=== PATIENT | female | born 1950 | race Caucasian/White ===

== ENCOUNTER 2017-06-15 11:59 | Inpatient (IN) | payer OTHER ==
[~2017-06-15] VITALS: Ht 175.3 cm; Wt 159.7 kg
[~2017-06-15 11:59] MED LIST: ASPIRIN325 MG PO; ATENOLOL-CHLOR1 EAC1 PO; Ascorbic Acid,Ester- PO; BACLOFEN10 MG PO; BENADRYL25 MG PO; BENTYL10 MG PO; BISAC-EVAC10 MG PR; BISACODYL5 MG PO; BUSPAR5 MG PO; COUMADIN,JANTOVE1 MG PO; Coumadin,Jantoven PO; DOK PLUS TABLE1 EACH PO; Ditropan PO; Dulcolax PO; ENDOCET 5-3251 EACH PO; Feosol PO; LEVAQUIN750 MG PO; LEVOTHYROXINE137 MCG PO; LEVOXYL137 MCG PO; LISINOPRIL20 MG PO; LORTAB 5-325 M1 EACH PO; LYRICA75 MG PO; Levothroid,Synthroid PO; MACROBID100 MG PO; METHOCARBAMOL500 MG PO; METOCLOPRAMIDE10 MG PO; MILK OF MAGNESI10 ML PO; NORCO 5/3251 TABLET PO; NYSTATIN15 GM TP; NYSTATIN60 GM TP; ONDANSETRON ODT4 MG PO; OXYCODONE HCL5 MG PO; PAXIL30 MG PO; PAXIL40 MG PO; PERCOCET 7.51 TABLET PO; PREDNISONE50 MG PO; PROAIR HFA8.5 GM IH; Paxil PO; Percocet 5/325,Endoc PO; SENOKOT S,PE1 TABLET PO; SKELAXIN800 MG PO; SYNTHROID150 MCG PO; TENORETIC PO; THERAGRAN1 TABLET PO; TOPROL XL50 MG PO; TRAMADOL HCL50 MG PO; Tenormin PO; Tylenol Regular Stre PO; XANAX0.5 MG PO; XARELTO10 MG PO; ZESTRIL20 MG PO; ZOFRAN ODT4 MG PO; Zestril,Prinivil PO
[2017-06-15 12:52] LABS: BASOPHIL (%) 0.3 % (0-1); EOSINOPHIL COUNT 0.1 K/uL (0-0.3); HEMATOCRIT 31.2 % (36.0-46.0); HEMOGLOBIN 9.3 G/DL (11.9-15.5); IMMATURE GRANULOCYTE (%) 0.9 % (0.0-0.7); LYMPHOCYTE (%) 5.2 % (15-42); LYMPHOCYTE COUNT 0.4 K/uL (1.0-2.8); MCH 24.4 PG (29.0-34.0); MCHC 29.8 G/DL (30.0-36.0); MCV 81.9 FL (83-99); MONOCYTE (%) 11.5 % (3-12); MONOCYTE COUNT 0.8 K/uL (0-0.8); NEUTROPHIL (%) 81.1 % (45-76); NEUTROPHIL COUNT 5.4 K/uL (1.8-6.4); PLATELET COUNT 243 K/uL (156-360); RBC DIS.WIDTH-CV 16.7 % (11.8-14.6); RBC DIS.WIDTH-SD 49.7 % (39-53); RED BLOOD COUNT 3.81 M/uL (3.80-5.20); WHITE BLOOD COUNT 6.7 K/uL (4.1-10.2)
[2017-06-15 13:14] LABS: ALBUMIN 3.4 g/dL (3.2-4.8)
[2017-06-15 13:15] LABS: CHLORIDE 104 mEq/L (99-109); SODIUM 136 mEq/L (136-147)
[2017-06-15 13:17] LABS: GLUCOSE 128 mg/dL (70-99); TOTAL PROTEIN 7.1 g/dL (6.4-8.3)
[2017-06-15 13:19] LABS: TOTAL BILIRUBIN 0.6 mg/dL (0.0-1.0)
[2017-06-15 13:21] LABS: ALKALINE PHOSPHATASE 91 IU/L (3-129); CREATININE 0.9 mg/dL (0.6-1.3); GFR ESTIMATE (CALCULATED) > 59 mL/min/
[2017-06-15 13:22] LABS: UREA NITROGEN (BUN) 13 mg/dL (9-23)
[2017-06-15 13:23] LABS: AST (GOT) 21 IU/L (2-34)
[2017-06-15 13:24] LABS: ALT (GPT) 14 IU/L (3-49); LIPASE 19 U/L (1.0-51.0)
[2017-06-15] MEDS ORDERED: VENTOLIN HFA18 GM IH (15:28)
[2017-06-15] MEDS ORDERED: PREDNISONE20 MG PO (15:28)
[2017-06-15] MEDS ORDERED: SYMBICORT60 INHALAT IH (16:46)
[2017-06-15] MEDS ORDERED: CYMBALTA30 MG PO (16:46)
[2017-06-15 17:42] LABS: APPEARANCE CLEAR ((CLEAR)); BILIRUBIN NEGATIVE; BLOOD SMALL; COLOR YELLOW ((YELLOW)); GLUCOSE (STRIP) NEGATIVE; KETONES NEGATIVE; LEUKOCYTES TRACE; NITRITE NEGATIVE; PROTEIN (STRIP) 30; UROBILINOGEN 0.2 MG/DL (0.2-1.0)
[2017-06-15 17:45] LABS: BACTERIA RARE /HPF; EPITHELIAL CELLS RARE /HPF; MUCUS TRACE /LPF; RED BLOOD CELLS 0-5 /HPF (0-5); UCUL ADDED? NO; WHITE BLOOD CELLS 0-5 /HPF (0-5)
[2017-06-15 18:56] VITALS: BP 153/67
[2017-06-15 23:19] VITALS: BP 146/68
[2017-06-16 03:39] VITALS: BP 134/79
[2017-06-16 07:46] VITALS: BP 128/60
[2017-06-16 11:53] VITALS: BP 130/78
[2017-06-16 15:46] VITALS: BP 146/64
[2017-06-16 19:50] VITALS: BP 149/73
[2017-06-17] VITALS (7 sets, daily range): BP systolic 122–159; BP diastolic 56–96
[2017-06-17 07:22] LABS: HEMATOCRIT 32.6 % (36.0-46.0); HEMOGLOBIN 9.5 G/DL (11.9-15.5); MCH 23.8 PG (29.0-34.0); MCHC 29.1 G/DL (30.0-36.0); MCV 81.7 FL (83-99); PLATELET COUNT 309 K/uL (156-360); RBC DIS.WIDTH-CV 16.8 % (11.8-14.6); RBC DIS.WIDTH-SD 50.4 % (39-53); RED BLOOD COUNT 3.99 M/uL (3.80-5.20); WHITE BLOOD COUNT 6.9 K/uL (4.1-10.2)
[2017-06-17 07:40] LABS: CHLORIDE 106 MEQ/L (99-109); CREATININE 0.9 MG/DL (0.6-1.3); GFR ESTIMATE (CALCULATED) > 59 mL/min/; POTASSIUM 4.1 MEQ/L (3.7-5.4); SODIUM 141 MEQ/L (136-147)
[2017-06-17 07:42] LABS: GLUCOSE 95 mg/dL (70-99); UREA NITROGEN (BUN) 23 mg/dL (9-23)
[2017-06-17 08:59] LABS: BASE EXCESS 0.5 mEq/L (-3 to +3); BICARBONATE 25.4 mEq/L (22-26); CARBOXY HGB 0.9 % (0-5); METHEMOGLOBIN 1.1 % (0-1.5); PCO2 41 mm Hg (35-45); PO2 97 mm Hg (80-100)
[2017-06-17 09:00] LABS: COMMENTS - BLOOD GASES A+C+; DEVICE NC; O2 FLOW 2 L/MIN; SITE LR; TOTAL RESP RATE 21 resp/min
[2017-06-18] VITALS (7 sets, daily range): BP systolic 121–165; BP diastolic 49–89
[2017-06-18 04:43] LABS: HDL CHOLESTEROL 42 MG/DL (Desirable>=50); LDL CHOLESTEROL 56 mg/dL (Desirable<100); NON-HDL CHOLESTEROL 75 mg/dL (Desirable<160); TOTAL CHOLESTEROL 117 mg/dL (Desirable<200); TRIGLYCERIDES 97 MG/DL (Normal: <150)
[2017-06-19 04:10] VITALS: BP 162/80
[2017-06-19 08:10] VITALS: BP 145/67
[2017-06-19 08:39] LABS: HEMATOCRIT 33.5 % (36.0-46.0); HEMOGLOBIN 10.1 G/DL (11.9-15.5); MCH 24.6 PG (29.0-34.0); MCHC 30.1 G/DL (30.0-36.0); MCV 81.7 FL (83-99); PLATELET COUNT 280 K/uL (156-360); RBC DIS.WIDTH-CV 16.7 % (11.8-14.6); RBC DIS.WIDTH-SD 49.6 % (39-53); WHITE BLOOD COUNT 7.3 K/uL (4.1-10.2)
[2017-06-19 09:02] LABS: CHLORIDE 103 MEQ/L (99-109); CREATININE 0.9 MG/DL (0.6-1.3); GFR ESTIMATE (CALCULATED) > 59 mL/min/; GLUCOSE 117 mg/dL (70-99); POTASSIUM 4.5 MEQ/L (3.7-5.4); SODIUM 136 MEQ/L (136-147); UREA NITROGEN (BUN) 27 mg/dL (9-23)
[2017-06-19 12:11] VITALS: BP 182/67
[2017-06-19 16:37] VITALS: BP 160/82
[2017-06-19 19:58] VITALS: BP 158/81
[2017-06-19 22:25] VITALS: BP 167/80
[2017-06-20 04:12] VITALS: BP 156/72
[2017-06-20 09:15] VITALS: BP 158/82
[2017-06-20 12:31] VITALS: BP 162/80
[2017-06-20] MEDS ORDERED: CEFTIN500 MG PO (13:35)
[2017-06-20] MEDS ORDERED: PREDNISONE10 MG PO (13:35)
[2017-06-20] MEDS ORDERED: DIGOXIN250 MCG PO (13:35)
== END 2017-06-20 16:19 | disposition home or self-care (01) | DRG 190 ==
LOC: EME 11:59 → EDOF 16:34 → 3EAST 16:34 → 4EAST 16:34 → ENRESERV 16:35 → 3EAST 18:03 → ENRESERV 06-17 13:15 → 4EAST 06-17 13:48 → ENPENDDIS 06-20 → 4EAST 06-20 16:19
PROVIDERS: Emergency Medicine; Hospitalist; Internal Medicine Pulmonary Disease; Physician Assistant
DX: J44.0 Chronic obstructive pulmonary disease with (acute) lower respiratory infection (principal); J10.01 Influenza due to other identified influenza virus with the same other identified influenza virus pneumonia; Z68.43 Body mass index [BMI] 50.0-59.9, adult; J96.01 Acute respiratory failure with hypoxia; F33.9 Major depressive disorder, recurrent, unspecified; J20.9 Acute bronchitis, unspecified; J10.1 Influenza due to other identified influenza virus with other respiratory manifestations; J44.1 Chronic obstructive pulmonary disease with (acute) exacerbation; E03.9 Hypothyroidism, unspecified; E66.01 Morbid (severe) obesity due to excess calories; E78.5 Hyperlipidemia, unspecified; F41.8 Other specified anxiety disorders; G89.29 Other chronic pain; I10 Essential (primary) hypertension; I27.20 Pulmonary hypertension, unspecified; I48.0 Paroxysmal atrial fibrillation; K57.30 Diverticulosis of large intestine without perforation or abscess without bleeding; M54.40 Lumbago with sciatica, unspecified side; M79.1 Myalgia; R19.7 Diarrhea, unspecified; K21.9 Gastro-esophageal reflux disease without esophagitis; M19.90 Unspecified osteoarthritis, unspecified site; Z96.653 Presence of artificial knee joint, bilateral; Z60.2 Problems related to living alone; Z90.49 Acquired absence of other specified parts of digestive tract
CPT/HCPCS: 36600; 71020; 74177; 80048; 80053; 80061; 81003; 82803; 83605; 83690; 83735; 85025; 85027; 87502; 93005; 93306; 94640; 94640 76; 94760; 94799; 99202; 99281; 99285; J1160; J1650; J2405; J2930; J3010; J3475; J7030; J7050; J7512

== ENCOUNTER 2017-07-11 14:11 | Observation (INO) | payer OTHER ==
[~2017-07-11] VITALS: Ht 172.7 cm; Wt 136.3 kg
[~2017-07-11 14:11] MED LIST changes: +CEFTIN500 MG PO; +DIGOXIN250 MCG PO; -PAXIL40 MG PO; -PERCOCET 7.51 TABLET PO; +PREDNISONE10 MG PO; +PREDNISONE20 MG PO; -SYNTHROID150 MCG PO; +VENTOLIN HFA18 GM IH
[2017-07-11 16:03] LABS: HEMATOCRIT 37.2 % (36.0-46.0); HEMOGLOBIN 11.4 G/DL (11.9-15.5); MCH 25.5 PG (29.0-34.0); MCHC 30.6 G/DL (30.0-36.0); MCV 83.2 FL (83-99); PLATELET COUNT 338 K/uL (156-360); RBC DIS.WIDTH-CV 19.1 % (11.8-14.6); RBC DIS.WIDTH-SD 56.4 % (39-53); RED BLOOD COUNT 4.47 M/uL (3.80-5.20); WHITE BLOOD COUNT 9.1 K/uL (4.1-10.2)
[2017-07-11 16:13] LABS: CHLORIDE 107 mEq/L (99-109); SODIUM 140 mEq/L (136-147)
[2017-07-11 16:15] LABS: GLUCOSE 121 mg/dL (70-99)
[2017-07-11 16:19] LABS: GFR ESTIMATE (CALCULATED) 58 mL/min/
[2017-07-11 16:20] LABS: UREA NITROGEN (BUN) 27 mg/dL (9-23)
[2017-07-11 16:28] LABS: TROP-I INTERPRETATION NEGATIVE; TROPONIN-I 0.03 ng/mL (0.0-0.30)
[2017-07-11] MEDS ORDERED: LISINOPRIL20 MG PO (18:44)
[2017-07-11] MEDS ORDERED: SYNTHROID150 MCG PO (18:44)
[2017-07-11] MEDS ORDERED: SYMBICORT60 INHALAT IH (18:44)
[2017-07-11] MEDS ORDERED: PAXIL40 MG PO (18:44)
[2017-07-11] MEDS ORDERED: PERCOCET 7.51 TABLET PO (18:44)
[2017-07-11] MEDS ORDERED: CYMBALTA30 MG PO (18:44)
[2017-07-11] MEDS ORDERED: DIGOX250 MCG PO (18:46)
[2017-07-11] MEDS ORDERED: PROAIR HFA8.5 GM IH (20:03)
[2017-07-11 22:24] VITALS: BP 157/69
[2017-07-11 23:31] VITALS: BP 161/67
[2017-07-12 07:59] VITALS: BP 188/81
[2017-07-12 09:48] VITALS: BP 163/70
[2017-07-12 11:36] VITALS: BP 137/65
[2017-07-12 15:52] VITALS: BP 173/74
[2017-07-12 20:00] VITALS: BP 145/65
[2017-07-12 23:45] VITALS: BP 138/64
[2017-07-13 03:32] VITALS: BP 137/65
[2017-07-13 07:42] VITALS: BP 138/62
[2017-07-13] MEDS ORDERED: PREDNISONE20 MG PO (10:56)
[2017-07-13] MEDS ORDERED: BUPROPION XL150 MG PO (10:57)
[2017-07-13] MEDS ORDERED: CARDIZEM CD,CA180 MG PO (10:58)
[2017-07-13] MEDS ORDERED: AZITHROMYCIN500 M1 PO (10:59)
== END 2017-07-13 13:00 | disposition home or self-care (01) ==
LOC: EME 14:11 → EDOF 19:53 → 4SOUTH 19:53 → EDOF 19:53 → ENRESERV 19:59 → 4SOUTH 21:57
DX: J44.1 Chronic obstructive pulmonary disease with (acute) exacerbation (principal); R09.02 Hypoxemia; F34.1 Dysthymic disorder; I11.0 Hypertensive heart disease with heart failure; I50.32 Chronic diastolic (congestive) heart failure; E86.0 Dehydration; E78.5 Hyperlipidemia, unspecified; F41.8 Other specified anxiety disorders; I48.0 Paroxysmal atrial fibrillation; E66.01 Morbid (severe) obesity due to excess calories; Z68.42 Body mass index [BMI] 45.0-49.9, adult; G47.33 Obstructive sleep apnea (adult) (pediatric); Z87.891 Personal history of nicotine dependence; R00.0 Tachycardia, unspecified; I27.20 Pulmonary hypertension, unspecified; E03.9 Hypothyroidism, unspecified; K44.9 Diaphragmatic hernia without obstruction or gangrene; K21.9 Gastro-esophageal reflux disease without esophagitis; M19.90 Unspecified osteoarthritis, unspecified site; G89.29 Other chronic pain; M54.5 Low back pain; Z96.653 Presence of artificial knee joint, bilateral; Z90.49 Acquired absence of other specified parts of digestive tract; Z82.49 Family history of ischemic heart disease and other diseases of the circulatory system; Z91.09 Other allergy status, other than to drugs and biological substances
CPT/HCPCS: 71046; 71275; 80048; 83880; 84484; 85027; 85379; 93005; 94640; 94640 76; 94760; 99202; G0378; G8978 GP CJ; G8979 GP CH; G8980 CJ; G8987 GO CJ; G8988 GO CH; G8989 CJ; J0692; J1650; J7040; J7512

== ENCOUNTER 2017-08-04 19:36 | Inpatient (IN) | payer OTHER ==
[~2017-08-04] VITALS: Ht 172.7 cm; Wt 158.0 kg
[~2017-08-04 19:36] MED LIST changes: +AZITHROMYCIN500 M1 PO; +BUPROPION XL150 MG PO; +CARDIZEM CD,CA180 MG PO; +CYMBALTA30 MG PO; +DIGOX250 MCG PO; +PAXIL40 MG PO; +PERCOCET 7.51 TABLET PO; +SYMBICORT60 INHALAT IH; +SYNTHROID150 MCG PO
[2017-08-04 20:39] LABS: HEMATOCRIT 36.3 % (36.0-46.0); HEMOGLOBIN 10.9 G/DL (11.9-15.5); MCH 25.3 PG (29.0-34.0); MCV 84.4 FL (83-99); PLATELET COUNT 250 K/uL (156-360); RBC DIS.WIDTH-SD 57.5 % (39-53); WHITE BLOOD COUNT 12.1 K/uL (4.1-10.2)
[2017-08-04 20:52] LABS: CHLORIDE 104 mEq/L (99-109); POTASSIUM 4.3 mEq/L (3.7-5.4); SODIUM 141 mEq/L (136-147)
[2017-08-04 20:53] LABS: GLUCOSE 125 mg/dL (70-99)
[2017-08-04 20:57] LABS: CREATININE 0.8 mg/dL (0.6-1.3); GFR ESTIMATE (CALCULATED) > 59 mL/min/
[2017-08-04 20:58] LABS: UREA NITROGEN (BUN) 9 mg/dL (9-23)
[2017-08-04 23:51] LABS: BASE EXCESS 3.9 mEq/L (-3 to +3); BICARBONATE 27.6 mEq/L (22-26); CARBOXY HGB 1.8 % (0-5); COMMENTS - BLOOD GASES C+A+; DEVICE ROOM AIR; METHEMOGLOBIN 0.4 % (0-1.5); PCO2 37 mm Hg (35-45); PO2 68 mm Hg (80-100); SITE RR; pH 7.48 (7.35-7.45)
[2017-08-05 00:12] LABS: TROP-I INTERPRETATION NEGATIVE; TROPONIN-I 0.04 ng/mL (0.0-0.30)
[2017-08-05 06:08] LABS: HEMATOCRIT 34.4 % (36.0-46.0); HEMOGLOBIN 10.4 G/DL (11.9-15.5); MCH 25.3 PG (29.0-34.0); MCHC 30.2 G/DL (30.0-36.0); MCV 83.7 FL (83-99); PLATELET COUNT 231 K/uL (156-360); RBC DIS.WIDTH-CV 19.2 % (11.8-14.6); RBC DIS.WIDTH-SD 58.8 % (39-53); RED BLOOD COUNT 4.11 M/uL (3.80-5.20); WHITE BLOOD COUNT 9.7 K/uL (4.1-10.2)
[2017-08-05 06:19] LABS: CHLORIDE 105 mEq/L (99-109); SODIUM 139 mEq/L (136-147)
[2017-08-05 06:21] LABS: GLUCOSE 185 mg/dL (70-99)
[2017-08-05 06:25] LABS: CREATININE 0.8 mg/dL (0.6-1.3); GFR ESTIMATE (CALCULATED) > 59 mL/min/
[2017-08-05 06:26] LABS: UREA NITROGEN (BUN) 10 mg/dL (9-23)
[2017-08-05 06:29] LABS: TROP-I INTERPRETATION NEGATIVE; TROPONIN-I 0.05 ng/mL (0.0-0.30)
[2017-08-05 08:00] VITALS: BP 151/71
[2017-08-05 12:00] VITALS: BP 157/73
[2017-08-05 12:52] LABS: TROP-I INTERPRETATION NEGATIVE; TROPONIN-I 0.02 ng/mL (0.0-0.30)
[2017-08-05 16:00] VITALS: BP 141/67
[2017-08-05 19:30] VITALS: BP 132/66
[2017-08-05 23:51] VITALS: BP 144/65
[2017-08-06 03:39] VITALS: BP 137/64
[2017-08-06 07:41] LABS: BASOPHIL (%) 0.1 % (0-1); EOSINOPHIL (%) 0.1 % (0-5); HEMOGLOBIN 9.8 G/DL (11.9-15.5); LYMPHOCYTE (%) 5.3 % (15-42); LYMPHOCYTE COUNT 0.6 K/uL (1.0-2.8); MCHC 29.7 G/DL (30.0-36.0); MCV 84.2 FL (83-99); MONOCYTE (%) 5.5 % (3-12); MONOCYTE COUNT 0.6 K/uL (0-0.8); NEUTROPHIL COUNT 9.5 K/uL (1.8-6.4); PLATELET COUNT 252 K/uL (156-360); RBC DIS.WIDTH-CV 19.5 % (11.8-14.6); RBC DIS.WIDTH-SD 59.7 % (39-53); RED BLOOD COUNT 3.92 M/uL (3.80-5.20); WHITE BLOOD COUNT 10.9 K/uL (4.1-10.2)
[2017-08-06 08:00] VITALS: BP 170/73
[2017-08-06 08:04] LABS: CHLORIDE 105 MEQ/L (99-109); CREATININE 0.8 MG/DL (0.6-1.3); GFR ESTIMATE (CALCULATED) > 59 mL/min/; GLUCOSE 191 mg/dL (70-99); POTASSIUM 4.3 MEQ/L (3.7-5.4); SODIUM 141 MEQ/L (136-147)
[2017-08-06 08:07] LABS: UREA NITROGEN (BUN) 21 mg/dL (9-23)
[2017-08-06 16:00] VITALS: BP 136/61
[2017-08-06 20:06] VITALS: BP 165/71
[2017-08-07] VITALS (10 sets, daily range): BP systolic 136–178; BP diastolic 47–88
[2017-08-07 05:31] LABS: BASOPHIL (%) 0.1 % (0-1); EOSINOPHIL (%) 0 % (0-5); HEMATOCRIT 32.5 % (36.0-46.0); HEMOGLOBIN 9.6 G/DL (11.9-15.5); IMMATURE GRANULOCYTE (%) 1.4 % (0.0-0.7); LYMPHOCYTE (%) 5.9 % (15-42); LYMPHOCYTE COUNT 0.7 K/uL (1.0-2.8); MCH 25.1 PG (29.0-34.0); MCHC 29.5 G/DL (30.0-36.0); MCV 85.1 FL (83-99); MONOCYTE (%) 8.6 % (3-12); NEUTROPHIL COUNT 9.3 K/uL (1.8-6.4); PLATELET COUNT 262 K/uL (156-360); RBC DIS.WIDTH-CV 19.5 % (11.8-14.6); RBC DIS.WIDTH-SD 60.3 % (39-53); RED BLOOD COUNT 3.82 M/uL (3.80-5.20); WHITE BLOOD COUNT 11.1 K/uL (4.1-10.2)
[2017-08-07 05:41] LABS: CHLORIDE 105 MEQ/L (99-109); CREATININE 0.9 MG/DL (0.6-1.3); GFR ESTIMATE (CALCULATED) > 59 mL/min/; GLUCOSE 137 mg/dL (70-99); POTASSIUM 4.1 MEQ/L (3.7-5.4); SODIUM 142 MEQ/L (136-147); UREA NITROGEN (BUN) 31 mg/dL (9-23)
[2017-08-07 09:04] LABS: HEMOGLOBIN A1c (GLYCOHEMOGLOB) 6.1 % (Below 5.7)
[2017-08-07] MEDS ORDERED: PRINIVIL20 MG PO (15:59)
[2017-08-07] MEDS ORDERED: METOPROLOL SUCC50 MG PO (16:00)
[2017-08-07] MEDS ORDERED: SINGULAIR10 MG PO (16:00)
[2017-08-07] MEDS ORDERED: TOPROL XL50 MG PO (16:01)
[2017-08-07] MEDS ORDERED: SYMBICORT60 INHALAT IH (16:08)
[2017-08-08 02:59] VITALS: BP 150/62
[2017-08-08 07:55] VITALS: BP 146/74
[2017-08-08] MEDS ORDERED: PREDNISONE5 MG PO (13:39)
[2017-08-08] MEDS ORDERED: DUONEB 2.5-0.5 M3 ML AEROSOL (13:39)
[2017-08-08] MEDS ORDERED: ALPRAZOLAM0.25 M2 PO (13:39)
[2017-08-08] MEDS ORDERED: AMOX TR-K CLV1 EAC4 PO (13:39)
== END 2017-08-08 15:41 | disposition home health service (06) | DRG 191 ==
LOC: EME 19:36 → EDOF 08-05 01:38 → 2EAST 08-05 01:38 → ENRESERV 08-05 01:39 → 2EAST 08-05 08:02
PROVIDERS: Emergency Medicine; Hospitalist; Internal Medicine
DX: J44.1 Chronic obstructive pulmonary disease with (acute) exacerbation (principal); J20.8 Acute bronchitis due to other specified organisms; J44.0 Chronic obstructive pulmonary disease with (acute) lower respiratory infection; I48.2 Chronic atrial fibrillation; I48.0 Paroxysmal atrial fibrillation; G47.30 Sleep apnea, unspecified; E66.01 Morbid (severe) obesity due to excess calories; Z68.43 Body mass index [BMI] 50.0-59.9, adult; J81.1 Chronic pulmonary edema; I51.89 Other ill-defined heart diseases; I27.20 Pulmonary hypertension, unspecified; I10 Essential (primary) hypertension; E03.9 Hypothyroidism, unspecified; R91.1 Solitary pulmonary nodule; M19.90 Unspecified osteoarthritis, unspecified site; K21.9 Gastro-esophageal reflux disease without esophagitis; G89.29 Other chronic pain; M54.5 Low back pain; G43.909 Migraine, unspecified, not intractable, without status migrainosus; R73.03 Prediabetes; F41.9 Anxiety disorder, unspecified; F32.9 Major depressive disorder, single episode, unspecified; Z87.442 Personal history of urinary calculi; Z87.891 Personal history of nicotine dependence; Z96.653 Presence of artificial knee joint, bilateral
CPT/HCPCS: 36600; 71046; 80048; 80162; 82803; 82948; 83036; 83880; 84484; 85025; 85027; 85379; 87070; 87205; 87502; 90686; 93005; 94640; 94640 76; 94799; 99202; 99281; 99285; G0378; G8978 GP CI; G8980 GP CH; J0295; J1650; J2930; J3475; J7040; J7050; J7512

== ENCOUNTER 2017-09-09 12:54 | Emergency (ER) | payer OTHER ==
[~2017-09-09] VITALS: Ht 172.7 cm; Wt 163.4 kg
[~2017-09-09 12:54] MED LIST changes: +ALPRAZOLAM0.25 M2 PO; +AMOX TR-K CLV1 EAC4 PO; +DUONEB 2.5-0.5 M3 ML AEROSOL; +METOPROLOL SUCC50 MG PO; +PREDNISONE5 MG PO; +PRINIVIL20 MG PO; +SINGULAIR10 MG PO
[2017-09-09 14:20] LABS: BASOPHIL (%) 0.5 % (0-1); EOSINOPHIL (%) 1.6 % (0-5); EOSINOPHIL COUNT 0.1 K/uL (0-0.3); HEMATOCRIT 30.9 % (36.0-46.0); HEMOGLOBIN 9.2 G/DL (11.9-15.5); IMMATURE GRANULOCYTE (%) 3.3 % (0.0-0.7); LYMPHOCYTE (%) 14.1 % (15-42); LYMPHOCYTE COUNT 1.3 K/uL (1.0-2.8); MCH 25.8 PG (29.0-34.0); MCHC 29.8 G/DL (30.0-36.0); MCV 86.8 FL (83-99); MONOCYTE (%) 11.3 % (3-12); NEUTROPHIL (%) 69.2 % (45-76); NEUTROPHIL COUNT 6.1 K/uL (1.8-6.4); NRBC (%) 0.5 /100 WBC (0-0); PLATELET COUNT 309 K/uL (156-360); RBC DIS.WIDTH-CV 18.8 % (11.8-14.6); RBC DIS.WIDTH-SD 59.7 % (39-53); RED BLOOD COUNT 3.56 M/uL (3.80-5.20); WHITE BLOOD COUNT 8.9 K/uL (4.1-10.2)
[2017-09-09 14:29] LABS: CHLORIDE 108 mEq/L (99-109); POTASSIUM 3.9 mEq/L (3.7-5.4); SODIUM 142 mEq/L (136-147)
[2017-09-09 14:30] LABS: GLUCOSE 106 mg/dL (70-99)
[2017-09-09 14:34] LABS: CREATININE 0.7 mg/dL (0.6-1.3); GFR ESTIMATE (CALCULATED) > 59 mL/min/
[2017-09-09 14:35] LABS: UREA NITROGEN (BUN) 10 mg/dL (9-23)
[2017-09-09 14:40] LABS: TROP-I INTERPRETATION NEGATIVE; TROPONIN-I 0.03 ng/mL (0.0-0.30)
[2017-09-09] MEDS ORDERED: PREDNISONE50 MG PO (15:12)
[2017-09-09] MEDS ORDERED: ZITHROMAX Z-PA250 MG PO (15:12)
[2017-09-09 16:54] VITALS: BP 138/85
== END 2017-09-09 16:56 | disposition home or self-care (01) ==
LOC: EME 12:54
PROVIDERS: Emergency Medicine
DX: J44.1 Chronic obstructive pulmonary disease with (acute) exacerbation (principal); J44.0 Chronic obstructive pulmonary disease with (acute) lower respiratory infection; J20.9 Acute bronchitis, unspecified; R07.89 Other chest pain; Z87.891 Personal history of nicotine dependence; Z96.653 Presence of artificial knee joint, bilateral; K21.9 Gastro-esophageal reflux disease without esophagitis; I10 Essential (primary) hypertension; F41.9 Anxiety disorder, unspecified
CPT/HCPCS: 71045; 80048; 83880; 84484; 85025; 93005; 94640; 99281; 99285; J7512

== ENCOUNTER 2017-11-05 00:57 | Emergency (ER) | payer OTHER ==
[~2017-11-05] VITALS: Ht 172.7 cm; Wt 155.1 kg
[~2017-11-05 00:57] MED LIST changes: +ZITHROMAX Z-PA250 MG PO
[2017-11-05 01:16] LABS: HEMATOCRIT 28.6 % (36.0-46.0); HEMOGLOBIN 8.5 G/DL (11.9-15.5); MCH 24.7 PG (29.0-34.0); MCHC 29.7 G/DL (30.0-36.0); MCV 83.1 FL (83-99); PLATELET COUNT 450 K/uL (156-360); RBC DIS.WIDTH-CV 17.2 % (11.8-14.6); RBC DIS.WIDTH-SD 51.8 % (39-53); RED BLOOD COUNT 3.44 M/uL (3.80-5.20); WHITE BLOOD COUNT 14.1 K/uL (4.1-10.2)
[2017-11-05 01:34] LABS: CHLORIDE 109 mEq/L (99-109); POTASSIUM 4.5 mEq/L (3.7-5.4); SODIUM 143 mEq/L (136-147)
[2017-11-05 01:36] LABS: GLUCOSE 130 mg/dL (70-99)
[2017-11-05 01:39] LABS: CREATININE 0.9 mg/dL (0.6-1.3); GFR ESTIMATE (CALCULATED) > 59 mL/min/
[2017-11-05 01:40] LABS: UREA NITROGEN (BUN) 18 mg/dL (9-23)
[2017-11-05 01:41] LABS: TROP-I INTERPRETATION NEGATIVE; TROPONIN-I 0.03 ng/mL (0.0-0.30)
[2017-11-05 03:04] VITALS: BP 153/92
== END 2017-11-05 03:11 | disposition home or self-care (01) ==
LOC: EME → EDBD 00:57 → EME 03:11
DX: F41.9 Anxiety disorder, unspecified (principal); J44.9 Chronic obstructive pulmonary disease, unspecified; I10 Essential (primary) hypertension; K21.9 Gastro-esophageal reflux disease without esophagitis; E11.9 Type 2 diabetes mellitus without complications; Z87.891 Personal history of nicotine dependence; Z87.442 Personal history of urinary calculi; Z87.440 Personal history of urinary (tract) infections; Z90.49 Acquired absence of other specified parts of digestive tract; Z96.653 Presence of artificial knee joint, bilateral
CPT/HCPCS: 71046; 80048; 84484; 85027; 93005; 99281; 99284

== ENCOUNTER 2017-11-10 12:20 | Emergency (ER) | payer OTHER ==
[~2017-11-10] VITALS: Ht 172.7 cm; Wt 145.0 kg
[2017-11-10 13:15] LABS: HEMATOCRIT 27.2 % (36.0-46.0); HEMOGLOBIN 8.1 G/DL (11.9-15.5); MCH 24.2 PG (29.0-34.0); MCHC 29.8 G/DL (30.0-36.0); MCV 81.2 FL (83-99); NRBC (%) 0.2 /100 WBC (0-0); PLATELET COUNT 441 K/uL (156-360); RBC DIS.WIDTH-CV 17.2 % (11.8-14.6); RBC DIS.WIDTH-SD 50.7 % (39-53); RED BLOOD COUNT 3.35 M/uL (3.80-5.20); WHITE BLOOD COUNT 14.7 K/uL (4.1-10.2)
[2017-11-10 13:31] LABS: CHLORIDE 108 mEq/L (99-109); SODIUM 143 mEq/L (136-147)
[2017-11-10 13:33] LABS: GLUCOSE 114 mg/dL (70-99)
[2017-11-10 13:37] LABS: CREATININE 0.8 mg/dL (0.6-1.3); GFR ESTIMATE (CALCULATED) > 59 mL/min/; UREA NITROGEN (BUN) 19 mg/dL (9-23)
[2017-11-10 14:19] LABS: TROP-I INTERPRETATION NEGATIVE; TROPONIN-I 0.03 ng/mL (0.0-0.30)
[2017-11-10] MEDS ORDERED: AMBIEN5 MG PO (17:40)
[2017-11-10 18:08] VITALS: BP 141/74
== END 2017-11-10 18:09 | disposition home or self-care (01) ==
LOC: EME 12:20
DX: F41.1 Generalized anxiety disorder (principal); G47.00 Insomnia, unspecified; D64.9 Anemia, unspecified; I11.0 Hypertensive heart disease with heart failure; I50.9 Heart failure, unspecified; J44.9 Chronic obstructive pulmonary disease, unspecified; R73.03 Prediabetes; K21.9 Gastro-esophageal reflux disease without esophagitis; Z87.891 Personal history of nicotine dependence; Z87.442 Personal history of urinary calculi; Z87.440 Personal history of urinary (tract) infections; Z96.653 Presence of artificial knee joint, bilateral; Z90.49 Acquired absence of other specified parts of digestive tract; Z91.048 Other nonmedicinal substance allergy status
CPT/HCPCS: 71046; 80048; 84484; 85027; 90839; 99281; 99283

== ENCOUNTER 2017-11-14 01:52 | Emergency (ER) | payer OTHER ==
[~2017-11-14] VITALS: Ht 172.7 cm; Wt 157.8 kg
[~2017-11-14 01:52] MED LIST changes: +AMBIEN5 MG PO
[2017-11-14 03:01] LABS: HEMATOCRIT 27.1 % (36.0-46.0); MCH 24.2 PG (29.0-34.0); MCHC 29.5 G/DL (30.0-36.0); MCV 81.9 FL (83-99); PLATELET COUNT 399 K/uL (156-360); RBC DIS.WIDTH-CV 17.2 % (11.8-14.6); RBC DIS.WIDTH-SD 51.4 % (39-53); RED BLOOD COUNT 3.31 M/uL (3.80-5.20); WHITE BLOOD COUNT 12.5 K/uL (4.1-10.2)
[2017-11-14 03:11] LABS: ALBUMIN 3.5 g/dL (3.2-4.8); CHLORIDE 106 mEq/L (99-109); POTASSIUM 4.4 mEq/L (3.7-5.4)
[2017-11-14 03:12] LABS: SODIUM 142 mEq/L (136-147)
[2017-11-14 03:14] LABS: GLUCOSE 126 mg/dL (70-99)
[2017-11-14 03:16] LABS: TOTAL BILIRUBIN 1.1 mg/dL (0.0-1.0)
[2017-11-14 03:17] LABS: ALKALINE PHOSPHATASE 80 IU/L (3-129); CREATININE 0.9 mg/dL (0.6-1.3); GFR ESTIMATE (CALCULATED) > 59 mL/min/
[2017-11-14 03:19] LABS: AST (GOT) 28 IU/L (2-34); UREA NITROGEN (BUN) 18 mg/dL (9-23)
[2017-11-14 03:20] LABS: ALT (GPT) 15 IU/L (3-49)
[2017-11-14 03:22] LABS: TROP-I INTERPRETATION NEGATIVE; TROPONIN-I 0.02 ng/mL (0.0-0.30)
[2017-11-14 03:27] LABS: DIGOXIN 0.9 ng/mL (0.8-2.0)
[2017-11-14] MEDS ORDERED: ATIVAN1 MG PO (04:49)
[2017-11-14 05:23] VITALS: BP 159/57
== END 2017-11-14 05:24 | disposition home or self-care (01) ==
LOC: EME 01:52
PROVIDERS: Emergency Medicine
DX: F41.9 Anxiety disorder, unspecified (principal); J44.9 Chronic obstructive pulmonary disease, unspecified; F33.9 Major depressive disorder, recurrent, unspecified; I10 Essential (primary) hypertension; K21.9 Gastro-esophageal reflux disease without esophagitis; Z87.442 Personal history of urinary calculi; Z96.653 Presence of artificial knee joint, bilateral; Z87.891 Personal history of nicotine dependence
CPT/HCPCS: 80053; 80162; 83880; 84484; 85027; 90839; 93005; 94640; 99281; 99285; J7512